=== PATIENT | male | born 1945 | race Caucasian/White ===

== ENCOUNTER 2017-11-28 12:37 | Observation (INO) | payer OTHER ==
[~2017-11-28] VITALS: Ht 180.3 cm; Wt 90.7 kg
[~2017-11-28 12:37] MED LIST: ASPIRIN EC81 M1 PO; ATORVASTATIN CA40 M1 PO; FLOVENT DISKU100 MCG INH; MULTI-DAY VITA1 EACH PO; TAMSULOSIN HCL0.4 M1 PO; TYLENOL WITH C1 EACH PO
[2017-11-28] MEDS ORDERED: MELOXICAM7.5 M1 PO (12:46)
--- NOTE | 2017-11-28 14:06 | ED GI/GU/ABDOMINAL COMPLAINT ---
See Addendum History of Present Illness General Chief Complaint: General Adult Stated Complaint: RECTAL BLEEDING ON AND OFF SINCE MONDAY Source: patient Exam Limitations: no limitations Vital Signs & Intake/Output Vital Signs & Intake/Output Vital Signs Date Time Temp Pulse Resp B/P B/P Pulse O2 O2 Flow FiO2 Mean Ox Delivery Rate 11/28 1457 142/71 11/28 1447 99 Room Air 11/28 1243 97.2 105 18 140/68 96 Room Air Allergies Coded Allergies: NO KNOWN ALLERGIES (11/07/12) Reconcile Medications Aspirin (Ecotrin*) 81 MG TABLET.DR 1 TAB PO DAILY HEART/BLOOD (Reported) Atorvastatin Calcium 40 MG TABLET 1 TAB PO DAILY CHOLESTEROL (Reported) Fluticasone Propionate (Flovent Diskus) 100 MCG BLST.W.DEV 1 PUF INH BID ASTHMA (Reported) Meloxicam 7.5 MG TABLET 1 TAB PO QOD ARTHRITIS (Reported) Multivitamin (Multi-Day Vitamins) 1 EACH TABLET 1 TAB PO DAILY SUPPLEMENT ( Reported) Tamsulosin HCl 0.4 MG CAP.ER.24H 1 CAP PO DAILY PROSTATE (Reported) Triage Note: PER PT HAD BLOOD IN STOOL MONDAY AFTER STRAINING WITH BM, NO OTHER PROBLEMS DID NOT OCCUR AGAIN UNTIL THIS AM PER GI DR ?RUPTURED DIVERTICULEM Triage Nurses Notes Reviewed? yes Onset: Abrupt Duration: day(s): (3), waxing and waning Timing: recent history Location: RECTAL Radiation: no radiation HPI: This is a 72-year-old male with history of asthma, high cholesterol, known diverticular disease who presents to the ER chief complaint of rectal bleeding that began on Monday morning. He states he was straining to have a bowel movement which was normal color but then after a lot of bright red blood in the toilet. No clots. Later on that afternoon he had a normal brown bowel movement without any associated blood. Yesterday all throughout the day he was fine had normal bowel movements without bleeding however yesterday evening he again had bright red blood after a BM. He had another 2 episodes during the night and his last episode of bleeding was this morning at 11:30. Patient Denies any abdominal pain cramping back pain, lightheadedness dizziness chest pain or shortness of breath. He had his last colonoscopy partially 5 years ago in [place] and was told that he sees. 10 years prior he had one polypectomy. No history of colon cancer. He is on a baby aspirin at home but denies any other anticoagulant use. He does not use any [id number] NSAIDs. He called his doctor who advised him to come to the ER today for evaluation. (Sophia Carrillo MD) Past History Travel History Traveled to [place] past 21 day No Medical History Any Pertinent Medical History? 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 No (Sophia Carrillo MD) Review of Systems Review of Systems Constitutional: Denies: chills, fever. EENTM: Reports: no symptoms. Respiratory: Denies: hemoptysis, short of breath, sputum production. Cardiovascular: Denies: chest pain, palpitations. GI: Reports: constipation, changes in stool. Denies: abdominal pain, bloody stool. Genitourinary: Denies: discharge, dysuria, frequency, hematuria. Musculoskeletal: Denies: back pain. Skin: Reports: no symptoms. Neurological/Psychological: Reports: no symptoms. Hematologic/Endocrine: Reports: bleeding. Denies: bruising, polyuria, polydipsia. Immunologic/Allergic: Denies: splenectomy. All Other Systems: Reviewed and Negative (Sophia Carrillo MD) Physical Exam Physical Exam General Appearance: well developed/nourished, alert, awake, mild distress Head: atraumatic, normal appearance Eyes: Bilateral: normal appearance, PERRL, EOMI. Ears, Nose, Throat, Mouth: hearing grossly normal, moist mucous membrane Neck: normal inspection, supple, full range of motion Respiratory: normal breath sounds, chest non-tender, no respiratory distress Cardiovascular: regular rate/rhythm, normal peripheral pulses Gastrointestinal: normal bowel sounds, soft, non-tender Rectal: DARK RED BLOOD ON MAIN Extremities: normal range of motion Neurologic/Psych: no motor/sensory deficits, awake, alert, oriented x 3, normal gait, normal mood/affect Skin: intact, normal color, warm/dry Core Measures ACS in differential dx? No Sepsis Present: No Sepsis Focused Exam Completed? No (Sophia Carrillo MD) Progress Differential Diagnosis: DIVERTICULOSIS, PUD, COLITIS, AVM, HEMORRHOIDS Plan of Care: Orders Procedure Date/time Status MISTAKE 11/28 1417 Active PARTIAL THROMBOPLASTIN TIME 11/28 1405 Complete PROTHROMBIN TIME 11/28 140 Complete LACTIC ACID 11/28 140 Complete COMPREHENSIVE METABOLIC PANEL 11/28 140 Complete CBC WITHOUT DIFFERENTIAL 11/28 140 Complete EKG 11/28 140 Active TYPE & SCREEN (NOT X-MATCH) 11/28 140 Complete Laboratory Tests 11/28/17 1432: Anion Gap 12, Estimated GFR > 60, BUN/Creatinine Ratio 31.1 H, Glucose 119 H, Lactic Acid 1.1, Calcium 9.5, Total Bilirubin 0.9, AST 21, ALT 21, Alkaline Phosphatase 63, Total Protein 6.7, Albumin 3.9, Globulin 2.8, Albumin/Globulin Ratio 1.4, PT 12.7 H, INR 1.16, APTT 29, CBC w Diff NO MAN DIFF REQ, RBC 4.13 L, MCV 84.6, MCH 29.0, MCHC 34.2, RDW 14.1, MPV 7.2 L, Gran % 77.5 H, Lymphocytes % 15.0 L, Monocytes % 5.3, Eosinophils % 1.7, Basophils % 0.5, Absolute Granulocytes 6.8 H, Absolute Lymphocytes 1.3, Absolute Monocytes 0.5, Absolute Eosinophils 0.1, Absolute Basophils 0 Initial ED EKG: RBBB Hand-Off Endorsed To: Chavo Patel DO Endorsed Time: 1500 Pending: consult (GI) (Sophia Carrillo MD) Departure Departure Disposition: STILL A PATIENT Condition: Stable Clinical Impression Primary Impression: GI bleed Referrals: Je Culp MD (PCP/Family) Departure Forms: Customer Survey General Discharge Information (Sophia Carrillo MD) Departure Comments 11/28/17 3 PM The patient was signed out to me by Dr. Carrillo. He is pending GI consultation. (Chavo Patel DO)
[2017-11-28 14:41] LABS: ABSOLUTE BASOPHIL COUNT 0 /CUMM (0.0-0.2); ABSOLUTE EOSINOPHIL COUNT 0.1 /CUMM (0.0-0.7); ABSOLUTE GRANULOCYTE CT 6.8 /CUMM (1.4-6.5); ABSOLUTE LYMPH COUNT 1.3 /CUMM (1.2-3.4); ABSOLUTE MONOCYTE COUNT 0.5 /CUMM (0.10-0.60); BASOPHIL % 0.5 % (0.0-2.0); EOSINOPHIL % 1.7 % (0-5); GRANULOCYTE % 77.5 % (42.2-75.2); MEAN CORPUSCULAR HGB CONC 34.2 G/DL (33.0-37.0); MEAN CORPUSCULAR VOLUME 84.6 FL (80.0-94.0); MEAN PLATELET VOLUME 7.2 FL (7.4-10.4); PLATELET COUNT 334 /CUMM (130-400); RBC DISTRIBUTION WIDTH 14.1 % (11.5-14.5); RED BLOOD CELL CT 4.13 /CUMM (4.70-6.10); WHITE BLOOD CELL COUNT 8.8 /CUMM (4.8-10.8)
[2017-11-28 14:51] LABS: PT 12.7 SEC (9.4-12.5); PTT 29 SEC (25-37)
--- NOTE | 2017-11-28 17:33 | Cons- Gastroenterology ---
General Information and HPI Consulting Request Date of Consult: 11/28/17 Requested By: Dr. Rand Reason for Consult: 1. Hematochezia 2. Acute blood loss anemia 3. Diverticulosis Source of Information: patient Exam Limitations: no limitations History of Present Illness: Mr. Ac is a very pleasant 72-year-old male with past medical history significant for diverticulosis. You asked had a colonoscopy around 5 years ago which was negative for colonic polyps. He has no significant past medical history with the exception of asthma for which she takes Advair. He was in his usual state of health until Monday evening when he had urgency for bowel movement. He felt a little constipated and went to the bathroom and when he turned flush the toilet noted that it was filled with blood. He had one other episode on Monday and went to sleep. However on Monday he had another episode in the morning and again in the afternoon was able to go to sleep however this morning when he awoke he again had another episode. He had no syncope, chest pain, shortness of breath. He describes the blood as being red. He had no straining. And had had no abdominal pain. He has never had an episode like this in the past. He generally has a normal bowel habit. He currently has no abdominal pain. He has no family history of breast ovarian uterine or colon cancer. Allergies/Medications Allergies: Coded Allergies: NO KNOWN ALLERGIES (11/07/12) Home Med List: Aspirin (Ecotrin*) 81 MG TABLET.DR 1 TAB PO DAILY HEART/BLOOD (Reported) Atorvastatin Calcium 40 MG TABLET 1 TAB PO DAILY CHOLESTEROL (Reported) Fluticasone Propionate (Flovent Diskus) 100 MCG BLST.W.DEV 1 PUF INH BID ASTHMA (Reported) Meloxicam 7.5 MG TABLET 1 TAB PO QOD ARTHRITIS (Reported) Multivitamin (Multi-Day Vitamins) 1 EACH TABLET 1 TAB PO DAILY SUPPLEMENT ( Reported) Tamsulosin HCl 0.4 MG CAP.ER.24H 1 CAP PO DAILY PROSTATE (Reported) Past History Travel History Traveled to [place] past 21 day No Medical History Neurological: NONE EENT: NONE Cardiovascular: CHOL Respiratory: asthma Gastrointestinal: DIVERITULOSIS Hepatic: NONE Renal: NONE Musculoskeletal: osteoarthritis Psychiatric: NONE Endocrine: NONE Blood Disorders: NONE Cancer(s): NONE 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 EENTM: Reports: no symptoms. Cardiovascular: Reports: no symptoms. Respiratory: Reports: see HPI. GI: Reports: see HPI. Genitourinary: Reports: no symptoms. Musculoskeletal: Reports: no symptoms. Skin: Reports: no symptoms. Neurological/Psychological: Reports: no symptoms. Hematologic/Endocrine: Reports: no symptoms. Exam & Diagnostic Data Vital Signs and I&O Vital Signs Date Time Temp Pulse Resp B/P B/P Pulse O2 O2 Flow FiO2 Mean Ox Delivery Rate 11/28 1457 142/71 11/28 1447 99 Room Air 11/28 1243 97.2 105 18 140/68 96 Room Air Intake & Output 11/28 1600 11/28 0400 11/27 1600 11/27 0400 11/26 1600 11/26 0400 Intake Total 0 Output Total Balance 0 Intake, Oral 0 Patient 200 lb Weight Weight Reported by Patient Measurement Method Physical Exam General Appearance: well developed/nourished, no apparent distress, alert, awake Head: atraumatic, normal appearance Eyes: Bilateral: normal appearance. Ears, Nose, Throat: hearing grossly normal Neck: normal inspection, supple, full range of motion Respiratory: normal breath sounds, chest non-tender, lungs clear Cardiovascular: regular rate/rhythm, normal S1 and S2 without rub murmur or gallop Gastrointestinal: normal bowel sounds, soft, non-tender, no organomegaly Rectal: Brown stool heme positive per ED note Neurologic/Psych: no motor/sensory deficits, awake, alert, oriented x 3, normal mood/affect Cranial Nerves: normal hearing, normal speech, cranial nerves II through XII grossly intact Skin: intact, normal color, warm/dry Results Pertinent Lab Results: Laboratory Tests 11/28 11/28 1705 1432 Chemistry Sodium (137 - 145 mmol/L) 141 Potassium (3.5 - 5.1 mmol/L) 4.3 Chloride (98 - 107 mmol/L) 103 Carbon Dioxide (22 - 30 mmol/L) 26 Anion Gap (5 - 16) 12 BUN (9 - 20 mg/dL) 28 H Creatinine (0.7 - 1.2 mg/dL) 0.9 Estimated GFR (>60 ml/min) > 60 BUN/Creatinine Ratio (7 - 25 %) 31.1 H Glucose (65 - 99 mg/dL) 119 H Lactic Acid (0.7 - 2.1 mmol/L) Cancelled 1.1 Calcium (8.4 - 10.2 mg/dL) 9.5 Total Bilirubin (0.2 - 1.3 mg/dL) 0.9 AST (17 - 59 U/L) 21 ALT (21 - 72 U/L) 21 Alkaline Phosphatase (< 127 U/L) 63 Total Protein (6.3 - 8.2 g/dL) 6.7 Albumin (3.5 - 5.0 g/dL) 3.9 Globulin (1.9 - 4.2 gm/dL) 2.8 Albumin/Globulin Ratio (1.1 - 2.2 %) 1.4 Coagulation PT (9.4 - 12.5 SEC) 12.7 H INR (0.90 - 1.17) 1.16 APTT (25 - 37 SEC) 29 Hematology CBC w Diff NO MAN DIFF REQ WBC (4.8 - 10.8 /CUMM) 8.8 RBC (4.70 - 6.10 /CUMM) 4.13 L Hgb (14.0 - 18.0 G/DL) 12.0 L Hct (42 - 52 %) 35.0 L MCV (80.0 - 94.0 FL) 84.6 MCH (27.0 - 31.0 PG) 29.0 MCHC (33.0 - 37.0 G/DL) 34.2 RDW (11.5 - 14.5 %) 14.1 Plt Count (130 - 400 /CUMM) 334 MPV (7.4 - 10.4 FL) 7.2 L Gran % (42.2 - 75.2 %) 77.5 H Lymphocytes % (20.5 - 51.1 %) 15.0 L Monocytes % (1.7 - 9.3 %) 5.3 Eosinophils % (0 - 5 %) 1.7 Basophils % (0.0 - 2.0 %) 0.5 Absolute Granulocytes (1.4 - 6.5 /CUMM) 6.8 H Absolute Lymphocytes (1.2 - 3.4 /CUMM) 1.3 Absolute Monocytes (0.10 - 0.60 /CUMM) 0.5 Absolute Eosinophils (0.0 - 0.7 /CUMM) 0.1 Absolute Basophils (0.0 - 0.2 /CUMM) 0 Assessment/Plan Assessment/Recommendations: ASSESSMENT: 1. Acute blood loss anemia 2. Hematochezia 3. Known history of diverticulosis Patient's blood loss is likely diverticular in origin. I discussed the risks and benefits of colonoscopy with him. He is due for colonoscopy this year anyway and is agreeable to having the procedure now. RECOMMENDATIONS: 1. Clear liquid, non-red, diet 2. Colonic preparation tonight. 2 L of GoLYTELY now and then 2 L at 5 AM 3. Colonoscopy tomorrow a.m. I have discussed the risks and benefits of this with him 4. All questions have been answered. 5. 2 large-bore IVs 6. Serial H&H every 6 hours 7. If recurrent lower GI bleeding that is clinically or hemodynamically significant call Kimmy Madison M.D. Consult Acknowledgment - Thank you for your consult request.
--- NOTE | 2017-11-28 18:10 | History & Physical ---
Shawn Kern 11/28/17 1809: General Information and HPI Source of Information: patient Exam Limitations: no limitations History of Present Illness: Mr. Linda is a 72-year-old male with past medical history significant for asthma , diverticulosis, HLD, OA acute post streptococcal glomerulonephritis who presents to the ED for dark red stools for 3 days. Patient reports he was in his usual state of health when on Monday morning after using the bathroom his toilet was filled with dark red blood and blood mixed with stools, subsequently Monday evening he had a another episode of dark red stools. He then reports early this morning he had 2 episodes of dark red stools. He also reports he had some constipation on Monday in which he had hard stools. He takes meloxicam every other day for OA that he has been taken since February. He reports initially he was taking it daily for 1 month but is now on QOD, his last dose was Monday. He had a colonoscopy in 2012 by ([facility]) that was negative. He denies history of hemorrhoids, SOB, lightheadedness, nausea, vomiting, hematemesis, hematuria. Allergies/Medications Allergies: Coded Allergies: NO KNOWN ALLERGIES (11/07/12) Home Med list Aspirin (Ecotrin*) 81 MG TABLET.DR 1 TAB PO DAILY HEART/BLOOD (Reported) Atorvastatin Calcium 40 MG TABLET 1 TAB PO DAILY CHOLESTEROL (Reported) Fluticasone Propionate (Flovent Diskus) 100 MCG BLST.W.DEV 1 PUF INH BID ASTHMA (Reported) Meloxicam 7.5 MG TABLET 1 TAB PO QOD ARTHRITIS (Reported) Multivitamin (Multi-Day Vitamins) 1 EACH TABLET 1 TAB PO DAILY SUPPLEMENT ( Reported) Tamsulosin HCl 0.4 MG CAP.ER.24H 1 CAP PO DAILY PROSTATE (Reported) Observation Initial Note - I have personally examined ASHER LINDA on 11/28/17 at 1929. 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 Exam & Diagnostic Data Last 24 Hrs of Vital Signs/I&O Vital Signs Date Time Temp Pulse Resp B/P B/P Pulse O2 O2 Flow FiO2 Mean Ox Delivery Rate 11/28 1457 142/71 11/28 1447 99 Room Air 11/28 1243 97.2 105 18 140/68 96 Room Air Intake & Output 11/28 1600 11/28 0800 11/28 0000 Intake Total 0 Output Total Balance 0 Intake, Oral 0 Patient 200 lb Weight Weight Reported by Patient Measurement Method Physical Exam General Appearance Alert, Oriented X3, Cooperative, No Acute Distress HEENT Atraumatic, PERRLA, EOMI, Mucous Membr. moist/pink Neck Supple, No JVD, No thryomegaly, +2 Carotid Pulse wo Bruit Cardiovascular Regular Rate, Normal S1, Normal S2, No Murmurs Lungs Clear to Auscultation, Normal Air Movement Abdomen Normal Bowel Sounds, Soft, No Tenderness Extremities Normal Pulses Last 24 Hrs of Labs/Romel: Laboratory Tests 11/28/17 1705: Lactic Acid Cancelled 11/28/17 1432: Anion Gap 12, Estimated GFR > 60, BUN/Creatinine Ratio 31.1 H, Glucose 119 H, Lactic Acid 1.1, Calcium 9.5, Total Bilirubin 0.9, AST 21, ALT 21, Alkaline Phosphatase 63, Total Protein 6.7, Albumin 3.9, Globulin 2.8, Albumin/Globulin Ratio 1.4, PT 12.7 H, INR 1.16, APTT 29, CBC w Diff NO MAN DIFF REQ, RBC 4.13 L, MCV 84.6, MCH 29.0, MCHC 34.2, RDW 14.1, MPV 7.2 L, Gran % 77.5 H, Lymphocytes % 15.0 L, Monocytes % 5.3, Eosinophils % 1.7, Basophils % 0.5, Absolute Granulocytes 6.8 H, Absolute Lymphocytes 1.3, Absolute Monocytes 0.5, Absolute Eosinophils 0.1, Absolute Basophils 0 Diagnostic Data EKG Results NS , RBBB V1,V2 HR 94 QTc 476 Assessment/Plan Assessment: Mr. Linda is a 72-year-old male with past medical history significant for asthma , diverticulosis, HLD, OA acute post streptococcal glomerulonephritis who presents to the ED for LGIB for 3 days. LGIB most likely 2/2 diverticulosis given his history but malignancy most be r/o though colonoscopy in 2012 was negative for malignancy * Placed on 23 hour observation * 2 large bore IVs * CBC every 6 for H&H, goal hgb 7, transfuse if necessary * IV Protonix daily * GI consult * Nothing by mouth for colonoscopy in the morning * GoLYTELY for bowel prep * Resume home meds except meloxicam and ASA * Avoid NSAIDS Diet: Clear liquid DVT prophylaxis: ALPS As Ranked By This Provider Problem List: 1. GI bleed Core Measures/Misc (05/28) Acute Coronary Syndrome ACS Diagnosis: No Congestive Heart Failure Congestive Heart Failure Diagnosis No Cerebrovascular Accident CVA/TIA Diagnosis: No VTE (View Protocol) VTE Risk Factors Age>40 No Mechanical VTE Prophylaxis d/t N/A MechProphylax Ordered No VTE Pharm Prophylaxis d/t Medical Contraindication Sepsis (View protocol) Sepsis Present: No Trae Coleman MD 11/28/17 1854: Resident Review Statement Resident Statement: examined this patient, discussed with customer operations intern, agreed with customer operations intern Other Findings: Patient is a 72-year-old male with significant past medical history of asthma, osteoarthritis diagnosed in 2016 was on meloxicam presented with chief complaints of bleeding per rectum. According to the patient he was constipated since couple of days and on Monday he was straining which is followed by blood in the toilet. He denies any bright red blood color but define as it was black in color and mixed with the stool. Later on Monday night he had 2 episodes and on Monday morning he again had black stool so he came here for further evaluation and management. He denies chest pain, palpitation, headache, dizziness, blacking in front of eyes, abdominal pain, hemorrhoids. Past medical history -asthma, osteoarthritis,BPH, history of hydronephrosis of the left ureter, diverticulosis Allergies -NKDA Personal history -he lives with a family denies for any smoking, alcohol, illicit drug use. He quit his smoking around 30-35 years ago. Family history - his father has diverticulosis and aortic aneurysm secondary to smoking ED course - Vital signs -temperature 97.2, pulse 105, respiratory 18, blood pressure 140/68, SPO2 96% on room air. On physical exam conscious, cooperative, alert 3, oral mucosa moist, no palor, chest bilateral clear, heart S1-S2 normal, all peripheral pulses palpable. Blood workup showed - hemoglobin 12.5, hematocrit 35.0, platelet count 334, granulocytes 77.5, sodium 141, potassium 4.3, chloride 103, anion gap 12, BUN 28 , creatinine 0.9, glucose 119, calcium 9.5, AST 21, ALT 21, alkaline phosphatase 63, troponin I -pending, albumin 3.9,PT/INR 12.7/1.16, APTT 29. Assessment and plan patient is a 72-year-old male with past medical history of asthma and osteoarthritis was using meloxicam off and on presented with a GI bleed. The blood was black in color and mixed with the stool. It can be a lower GI bleed but that may be chronic or upper GI bleed secondary to ulcer. He is hemodynamically stable so it is more towards lower GI bleed but upper GI bleed cannot be ruled out. We will follow the GI recommendation and keep the patient n.p.o. after midnight for colonoscopy tomorrow at 1:00. If by chance patient got unstable in between will call GI immediately. GI bleed possibly lower but upper GI cannot be ruled out - * Clear liquid diet for now * N.p.o. after midnight * Watch for bleeding * CBC every 6 hours * Prepare for colonoscopy -2 L of GoLYTELY now and 5 PM. * If patient hemodynamically unstable call GI immediately. * Avoid NSAIDs Chronic medical condition -asthma, BPH, osteoarthritis * Will continue on home medication * We will avoid NSAIDs and if needed then oxycodone/Tylenol. CODE STATUS -full code DVT prophylaxis -ALPS Diet -clear liquid for now and n.p.o. after midnight for colonoscopy tomorrow. - Jorge L Warner MD 11/28/17 1517: Attending MD Review Statement Attending Statement Attending MD Statement: examined this patient, discuss w/resident/PA/GUSSET STITCHER, agreed w/resident/PA/GUSSET STITCHER, reviewed EMR data (avail) Attending Assessment/Plan: 72M PMH asthma, diverticulosis, HLD presenting with bloody bowel movements for 3 days. 3 days ago felt urge to defecate, strained a bit, and had a dark red bowel movement, which has continued for 3 days. He has no pain with defecation. He denies lightheadedness, chest pain, palpitations, SOB, fatigue, weakness. Vitals are stable and Hgb is only slightly decreased from prior. His exam is normal. Of note, he takes Meloxicam every other day for arthritis. He does not smoke and has no family history of colon cancer. 1. Hematochezia Plan - Observation in general medicine - Will go for colonoscopy in the morning - Bowel prep tonight - Monitor CBC - Follow GI recommendations - NPO after midnight - Continue home medications - DVT PPx
[2017-11-28 19:36] VITALS: BP 128/70
[2017-11-28 22:20] VITALS: BP 124/78
[2017-11-28 23:51] LABS: ABSOLUTE BASOPHIL COUNT 0 /CUMM (0.0-0.2); ABSOLUTE EOSINOPHIL COUNT 0.4 /CUMM (0.0-0.7); ABSOLUTE GRANULOCYTE CT 6.7 /CUMM (1.4-6.5); ABSOLUTE MONOCYTE COUNT 0.6 /CUMM (0.10-0.60); BASOPHIL % 0.5 % (0.0-2.0); EOSINOPHIL % 3.9 % (0-5); GRANULOCYTE % 68.4 % (42.2-75.2); HEMATOCRIT 35.9 % (42-52); MEAN CORPUSCULAR HGB 28.9 PG (27.0-31.0); MEAN CORPUSCULAR HGB CONC 33.7 G/DL (33.0-37.0); MEAN CORPUSCULAR VOLUME 85.9 FL (80.0-94.0); MEAN PLATELET VOLUME 7.2 FL (7.4-10.4); PLATELET COUNT 331 /CUMM (130-400); RBC DISTRIBUTION WIDTH 14.4 % (11.5-14.5); RED BLOOD CELL CT 4.18 /CUMM (4.70-6.10); WHITE BLOOD CELL COUNT 9.8 /CUMM (4.8-10.8)
[2017-11-29 06:12] VITALS: BP 128/74
[2017-11-29 10:32] LABS: ABSOLUTE BASOPHIL COUNT 0 /CUMM (0.0-0.2); ABSOLUTE EOSINOPHIL COUNT 0.2 /CUMM (0.0-0.7); ABSOLUTE GRANULOCYTE CT 5.7 /CUMM (1.4-6.5); ABSOLUTE LYMPH COUNT 1.5 /CUMM (1.2-3.4); ABSOLUTE MONOCYTE COUNT 0.4 /CUMM (0.10-0.60); BASOPHIL % 0.6 % (0.0-2.0); EOSINOPHIL % 2.8 % (0-5); GRANULOCYTE % 72.5 % (42.2-75.2); HEMATOCRIT 33.5 % (42-52); MEAN CORPUSCULAR HGB 29.2 PG (27.0-31.0); MEAN CORPUSCULAR HGB CONC 33.9 G/DL (33.0-37.0); MEAN CORPUSCULAR VOLUME 86.3 FL (80.0-94.0); MEAN PLATELET VOLUME 7.9 FL (7.4-10.4); PLATELET COUNT 306 /CUMM (130-400); RBC DISTRIBUTION WIDTH 14.3 % (11.5-14.5); RED BLOOD CELL CT 3.88 /CUMM (4.70-6.10); WHITE BLOOD CELL COUNT 7.8 /CUMM (4.8-10.8)
--- NOTE | 2017-11-29 11:23 | PN- Housestaff ---
Shawn Kern 11/29/17 1123: Subjective Follow-up For: LGIB Subjective: No complaints or acute events overnight Review of Systems Constitutional: Reports: see HPI. Objective Last 24 Hrs of Vital Signs/I&O Vital Signs Date Time Temp Pulse Resp B/P B/P Pulse O2 O2 Flow FiO2 Mean Ox Delivery Rate 11/29 0918 97.5 79 20 128/74 11/29 0612 97.5 79 20 128/74 94 Room Air 11/28 2220 97.9 87 20 124/78 96 Room Air 11/28 1936 98.5 91 18 128/70 95 Room Air 11/28 1854 98.2 89 18 140/82 97 11/28 1457 142/71 11/28 1447 99 Room Air 11/28 1243 97.2 105 18 140/68 96 Room Air Intake & Output 11/29 1600 11/29 0800 11/29 0000 Intake Total 800 Output Total 250 Balance 550 Intake, Oral 800 Number 3 Bowel Movements Output, Urine 250 Patient 200 lb Weight Physical Exam General Appearance: Alert, Oriented X3, Cooperative, No Acute Distress Cardiovascular: Regular Rate, Normal S1, Normal S2, No Murmurs Lungs: Clear to Auscultation, Normal Air Movement Abdomen: Normal Bowel Sounds, Soft, No Tenderness Current Medications: Current Medications Sig/Yvan Start time Last Medication Dose Route Stop Time Status Admin Albuterol Sulfate 2 PUF Q4 HRS NEEDED PRN 11/28 1930 AC INH Atorvastatin Calcium 40 MG 1700 11/29 1700 AC PO Chlorhexidine 1 GM .STK-MED ONE 11/29 1411 DC Gluconate TOP 11/29 1412 Pantoprazole Sodium 40 MG DAILY 11/28 1934 AC 11/29 IV 0918 Patient Medication 1 ED ONE ONE 11/29 1030 DC Teaching ED 11/29 1031 Polyethylene Glycol 1 GAL SEE ADMIN CRITERIA 11/28 1830 AC PO Tamsulosin HCl 0.4 MG DAILY 11/29 1000 AC 11/29 PO 0918 Last 24 Hrs of Lab/Romel Results Last 24 Hrs of Labs/Mics: Laboratory Tests 11/29/17 0925: CBC w Diff NO MAN DIFF REQ, RBC 3.88 L, MCV 86.3, MCH 29.2, MCHC 33.9, RDW 14.3 , MPV 7.9, Gran % 72.5, Lymphocytes % 19.2 L, Monocytes % 4.9, Eosinophils % 2.8, Basophils % 0.6, Absolute Granulocytes 5.7, Absolute Lymphocytes 1.5, Absolute Monocytes 0.4, Absolute Eosinophils 0.2, Absolute Basophils 0 11/28/17 2335: CBC w Diff NO MAN DIFF REQ, RBC 4.18 L, MCV 85.9, MCH 28.9, MCHC 33.7, RDW 14.4 , MPV 7.2 L, Gran % 68.4, Lymphocytes % 20.7, Monocytes % 6.5, Eosinophils % 3.9, Basophils % 0.5, Absolute Granulocytes 6.7 H, Absolute Lymphocytes 2.0, Absolute Monocytes 0.6, Absolute Eosinophils 0.4, Absolute Basophils 0 11/28/17 1705: Lactic Acid Cancelled Assessment/Plan Assessment: Mr. Linda is a 72-year-old male with past medical history significant for asthma , diverticulosis, HLD, OA, acute post streptococcal glomerulonephritis who presents to the ED for LGIB for 3 days. LGIB most likely 2/2 diverticulosis given his history but malignancy most be r/o though colonoscopy in 2012 was negative for malignancy * Extend 23 hour observation * CBC daily for H&H, goal hgb 7, transfuse if necessary * Continue PPI * GI recommendations appreciated * EGD showed pandiverticulosis * Continue home meds except meloxicam and ASA * Avoid NSAIDS Diet: Regular diet DVT prophylaxis: ALPS Patient will be discharged tomorrow if H&H stable Problem List: 1. GI bleed Pain Ratin Pain Location: NA Pain Goal: Remain pain free Pain Plan: NA Tomorrow's Labs & Rationales: CBC for anemia Sinai Oropeza MD 11/29/17 1429: Attending MD Review Statement Attending Statement Attending MD Statement: examined this patient, discuss w/resident/PA/SALES AND SERVICE CONSULTANT, agreed w/resident/PA/SALES AND SERVICE CONSULTANT, reviewed EMR data (avail), discussed with nursing, discussed with case mgmt, reviewed images Attending Assessment/Plan: Patient is in observation status. He is here with a lower GI bleed. He had his colonoscopy today, appreciate GIs recommendations and he was found to have pandiverticulosis. They are recommending to observe him overnight and will get another CBC in a.m. We have spoken to the pillowcase turner about extending his observation status with the idea of discharging him in a.m. if he tolerates a regular diet and has no more rectal bleeding.
--- NOTE | 2017-11-29 13:55 | Proc Note Colonoscopy ---
Colonoscopy Procedure Medical History: unchanged Mental Status: alert/oriented Heart/Lung Eval Prior to Sedation: within normal limits Candidate for Sedation? Yes Date of Last Colonoscopy: 2007 Procedure Date: 11/29/17 Procedure Type: colonoscopy w/biopsy Flooring Machine Feeder: MD Madison Deborah E. ASA Classification: II Indications: 1. Lower GI bleed 2. Acute blood loss anemia 3. Personal history diverticulosis Instrument (Colonoscope): single channel Meds Received: MAC Patient's Tolerance: good Complications: none Extent Reached: terminal ileum Prep: [id number] Procedure: The patient took a split dose colonic preparation after which they were NPO for an appropriate time prior to procedure. Note: Informed consent was obtained prior to procedure. Risks and benefits of procedure were discussed with patient. Potential complications discussed included perforation, bleeding, abdominal pain, and adverse reaction to medications. It was explained that iany or all of these complications could result in the need for extended hospitalization, emergency surgery, transfusion of packed red blood cells (with the risk of HIV or hepatitis virus), intubation with mechanical ventilation, and possible need for antibiotics. It was further explained that an existing tumor polyp or mucosal abnormality might not be identified at the time of the procedure thus resulting in a missed opportunity for early diagnosis and treatment of a gastrointestinal malignancy or disease with possible interval development of a gastrointestinal cancer or other disease with possible worsening of clinical condition in the interval between endoscopies. It was also discussed that complications are not limited to those listed above. Possible alternatives to endoscopic treatment or evaluation were discussed. All questions were answered. Continuous EKG and blood pressure monitors were attached. Supplemental oxygen was provided with O2 Sat monitoring. Patient was placed in the left lateral decubitus position. A surgical timeout was performed. All persons in the room were identified. All concerns were expressed and answered. Sedation was administered by anesthesia and titrated to comfort prior to starting procdedure. A digital rectal exam was performed. There was normal tone and no masses. The Olympus CHF 180AL video colonoscope was advanced under direct vision to the level of the cecum. The cecum was easily identified by internal landmarks. The cecum, ileocecal valve and appendiceal orifice were easily identified and photo documented. The ileocecal valve was intubated. The colonoscope was advanced for a distance of 10 cm within the terminal ileum. There was a normal mucosal and vascular pattern throughout the terminal ileum. With colonoscope in the forward-viewing position it was slowly withdrawn and all areas were reinspected. The cecum, ascending colon, hepatic flexure, transverse colon, splenic flexure, descending colon, sigmoid colon, rectosigmoid junction, rectum and retroflexed view of the rectum all fully examined. The ileocecal valve was somewhat prominent and had a lipomatous appearance. Multiple biopsies were obtained from the ileocecal valve given abnormal appearance. Retroflexed view of the rectum revealed a normal mucosal and vascular pattern. There was a normal mucosal and vascular pattern throughout the colon. There was severe diverticulosis throughout the entire colon. It was especially marked in the sigmoid colon extending to the mid descending colon. There were multiple cascading diverticuli of all sizes with associated mucosal hypertrophy. The rectosigmoid junction and distal sigmoid colon were somewhat tortuous to bypass however with care this was bypassed easily. Air was suctioned as the scope was withdrawn from the colon. Patient tolerated the procedure well. Cecal withdrawal time: 11 min Colonic preparation: Right Colon: 2.75; Transverse Colon: 3.0; Left Colon: 2.75. [place] Prep Scale Total: 8.5. Difficulty of Colonoscopy: Not difficult EBL: Minimal Specimens Removed: Prominent, lipomatous, ileocecal valve Findings: 1. Pandiverticulosis, most severe in the sigmoid and descending colon. 2. Prominent ileocecal valve, likely of little clinical significance Impression: 1. Pandiverticulosis, most severe in the sigmoid and descending colon. 2. Prominent ileocecal valve, likely of little clinical significance Recommendations: 1. Patient will need repeat screening colonoscopy in 10 years 2. Avoid or decrease red meat. Either diet that is high in fruits and vegetables and fiber. Avoid deli or processed meats as these contain nitrites which are associated with a higher risk of colon cancer. You may take aspirin daily after discussing it with your primary care physician as this has been shown to decrease the risk of formation of colon polyps and of colon cancer. 3. If you develop any worrisome symptoms before your next colonoscopy contact yourr air bag stripper for evaluation. Such symptoms would include persistent abdominal pain, weight loss, persistent bloating, change in bowel habits, blood in your stool, or any significant change in your clinical condition. 4.The results of the procedure have been discussed with the patient. His bleeding was likely diverticular in origin. 5. Advance diet to regular diet 6. If there is no further bleeding, patient can be discharged to home in a.m. Followup Colonscopy Screen In: in 10 years CC: Robbi MERCADO,Je
--- NOTE | 2017-11-29 14:25 | Patient Discharge Instructions ---
Discharge Instructions General Discharge Information You were seen/treated for: Lower GI bleeding due to Diverticulosis You had these procedures: Endoscopy Special Instructions: Avoid or decrease red meat. Either diet that is high in fruits and vegetables and fiber. Avoid deli or processed meats as these contain nitrites which are associated with a higher risk of colon cancer. You may take aspirin daily after discussing it with your primary care physician as this has been shown to decrease the risk of formation of colon polyps and of colon cancer. If you develop any worrisome symptoms before your next colonoscopy contact yourr tumbler machine operator helper for evaluation. Such symptoms would include persistent abdominal pain, weight loss, persistent bloating, change in bowel habits, blood in your stool, or any significant change in your clinical condition Activity Activity Self Limited: Yes Acute Coronary Syndrome Inclusion Criteria At DC or during hospital stay patient has or had the following: ACS DIAGNOSIS No Discharge Core Measures Meds if any: Prescribed or Continued at Discharge Meds if any: NOT Prescribed or Continued at Discharge Congestive Heart Failure Inclusion Criteria At DC or during hospital stay patient has or had the following: CHF DIAGNOSIS No Discharge Core Measures Meds if any: Prescribed or Continued at Discharge Meds if any: NOT Prescribed or Continued at Discharge Cerebrovascular accident Inclusion Criteria At DC or during hospital stay patient has or had the following: CVA/TIA Diagnosis No Discharge Core Measures Meds if any: Prescribed or Continued at Discharge Meds if any: NOT Prescribed or Continued at Discharge Venous thromboembolism Inclusion Criteria VTE Diagnosis No VTE Type NONE VTE Confirmed by (Test) NONE Discharge Core Measures - Per Current guidelines, there needs to be overlap - treatment for the first 5 days of Warfarin therapy. - If discharged on Warfarin prior to 5 days of - overlap therapy, the patient will need to be - assessed for post discharge needs including - *Post discharge parental anticoagulation - *Warfarin and/or parental anticoagulation education - *Follow up date to check INR post discharge At least 5 days overlap therapy as Inpatient No Meds if any: Prescribed or Continued at Discharge Note: Overlap Therapy is Warfarin and Anticoagulant Meds if any: NOT Prescribed or Continued at Discharge
[2017-11-29 14:48] VITALS: BP 148/86
[2017-11-29 19:43] VITALS: BP 116/70
[2017-11-29 20:40] LABS: ABSOLUTE BASOPHIL COUNT 0.1 /CUMM (0.0-0.2); ABSOLUTE EOSINOPHIL COUNT 0.2 /CUMM (0.0-0.7); ABSOLUTE GRANULOCYTE CT 5.2 /CUMM (1.4-6.5); ABSOLUTE LYMPH COUNT 1.5 /CUMM (1.2-3.4); ABSOLUTE MONOCYTE COUNT 0.5 /CUMM (0.10-0.60); BASOPHIL % 0.7 % (0.0-2.0); EOSINOPHIL % 3.1 % (0-5); GRANULOCYTE % 70.3 % (42.2-75.2); HEMATOCRIT 35.7 % (42-52); MEAN CORPUSCULAR HGB CONC 33.5 G/DL (33.0-37.0); MEAN CORPUSCULAR VOLUME 86.5 FL (80.0-94.0); MEAN PLATELET VOLUME 7.9 FL (7.4-10.4); PLATELET COUNT 329 /CUMM (130-400); RBC DISTRIBUTION WIDTH 14.3 % (11.5-14.5); RED BLOOD CELL CT 4.13 /CUMM (4.70-6.10); WHITE BLOOD CELL COUNT 7.4 /CUMM (4.8-10.8)
[2017-11-29 21:56] VITALS: BP 114/70
[2017-11-30 06:52] VITALS: BP 118/72
--- NOTE | 2017-11-30 08:03 | PN- Housestaff ---
See Addendum Subjective Follow-up For: Diverticulosis with diverticular bleeding Subjective: No complaints or events overnight Review of Systems Constitutional: Reports: see HPI. Objective Last 24 Hrs of Vital Signs/I&O Vital Signs Date Time Temp Pulse Resp B/P B/P Pulse O2 O2 Flow FiO2 Mean Ox Delivery Rate 11/30 0652 98.5 85 20 118/72 93 Room Air 11/29 2156 98.4 85 20 114/70 95 11/29 1448 97.4 87 20 148/86 96 Room Air Intake & Output 11/30 1600 11/30 0800 11/30 0000 Intake Total 100 100 Output Total Balance 100 100 Intake, Oral 100 100 Physical Exam General Appearance: Alert, Oriented X3, Cooperative, No Acute Distress Cardiovascular: Regular Rate, Normal S1, Normal S2, No Murmurs Lungs: Clear to Auscultation, Normal Air Movement Current Medications: Current Medications Sig/Yvan Start time Last Medication Dose Route Stop Time Status Admin Albuterol Sulfate 2 PUF Q4 HRS NEEDED PRN 11/28 1930 AC INH Atorvastatin Calcium 40 MG 1700 11/29 1700 AC 11/29 PO 1704 Chlorhexidine 1 GM .STK-MED ONE 11/29 1411 DC Gluconate TOP 11/29 1412 Pantoprazole Sodium 40 MG DAILY 11/28 1934 AC 11/30 IV 0905 Polyethylene Glycol 1 GAL SEE ADMIN CRITERIA 11/28 1830 AC PO Sodium Chloride 2 SPRAY Q4P PRN 11/30 0100 AC 11/30 KWABENA 0549 Tamsulosin HCl 0.4 MG DAILY 11/29 1000 AC 11/30 PO 0905 Last 24 Hrs of Lab/Romel Results Last 24 Hrs of Labs/Mics: Laboratory Tests 11/30/17 0755: CBC w Diff NO MAN DIFF REQ, RBC 3.88 L, MCV 85.9, MCH 28.8, MCHC 33.6, RDW 13.8 , MPV 7.7, Gran % 74.9, Lymphocytes % 16.4 L, Monocytes % 5.3, Eosinophils % 2.9, Basophils % 0.5, Absolute Granulocytes 6.8 H, Absolute Lymphocytes 1.5, Absolute Monocytes 0.5, Absolute Eosinophils 0.3, Absolute Basophils 0 11/29/171999: CBC w Diff NO MAN DIFF REQ, RBC 4.13 L, MCV 86.5, MCH 29.0, MCHC 33.5, RDW 14.3 , MPV 7.9, Gran % 70.3, Lymphocytes % 19.7 L, Monocytes % 6.2, Eosinophils % 3.1, Basophils % 0.7, Absolute Granulocytes 5.2, Absolute Lymphocytes 1.5, Absolute Monocytes 0.5, Absolute Eosinophils 0.2, Absolute Basophils 0.1 Assessment/Plan Assessment: Mr. Linda is a 72-year-old male with past medical history significant for asthma , diverticulosis, HLD, OA, acute post streptococcal glomerulonephritis who presents to the ED for LGIB for 3 days. LGIB most likely 2/2 diverticulosis given his history but malignancy most be r/o though colonoscopy in 2012 was negative for malignancy * CBC daily for H&H, goal hgb 7, transfuse if necessary * Continue PPI * GI recommendations appreciated * EGD showed pandiverticulosis * Continue home meds except meloxicam and ASA * Avoid NSAIDS * Patient cleared by GI and H&H stable for discharge Diet: Regular diet DVT prophylaxis: ALPS Problem List: 1. GI bleed Pain Ratin Pain Location: NA Pain Goal: Remain pain free Pain Plan: NA Tomorrow's Labs & Rationales: none
[2017-11-30 08:33] LABS: HEMATOCRIT 33.3 % (42-52); MEAN CORPUSCULAR HGB 28.8 PG (27.0-31.0); MEAN CORPUSCULAR HGB CONC 33.6 G/DL (33.0-37.0); MEAN CORPUSCULAR VOLUME 85.9 FL (80.0-94.0); MEAN PLATELET VOLUME 7.7 FL (7.4-10.4); PLATELET COUNT 308 /CUMM (130-400); RBC DISTRIBUTION WIDTH 13.8 % (11.5-14.5); RED BLOOD CELL CT 3.88 /CUMM (4.70-6.10); WHITE BLOOD CELL COUNT 9.1 /CUMM (4.8-10.8)
[2017-11-30 08:38] LABS: ABSOLUTE BASOPHIL COUNT 0 /CUMM (0.0-0.2); ABSOLUTE EOSINOPHIL COUNT 0.3 /CUMM (0.0-0.7); ABSOLUTE GRANULOCYTE CT 6.8 /CUMM (1.4-6.5); ABSOLUTE LYMPH COUNT 1.5 /CUMM (1.2-3.4); ABSOLUTE MONOCYTE COUNT 0.5 /CUMM (0.10-0.60); BASOPHIL % 0.5 % (0.0-2.0); EOSINOPHIL % 2.9 % (0-5); GRANULOCYTE % 74.9 % (42.2-75.2)
--- NOTE | 2017-11-30 10:13 | PN- Gastroenterology ---
Assessment/Plan GI Assessment/Recommendations: ASSESSMENT: Diverticular Bleed -- None Further. Mild decrease in H/H. Likely dilutional. No gross luminal GI blood loss. Patient tolerating diet. RECOMMENDATIONS: 1. Discharge to home today 2. Discussed with patient that he should increase fiber in diet. 3. Discussed that repeat colonoscopy should be done in 10 years 4. We also discussed that patient could have recurrent diverticular bleeding. if Mr. Linda has recurrent hematochezia he will return to the ED immediately. All ?s answered. Subjective Subjective: Patient doing well. Tolerating diet. No nausea, vomiting or abdominal pain. No melena or BRBPR. No bowel movement. Eager to go home. Objective Vital Signs and I&Os Vital Signs Date Time Temp Pulse Resp B/P B/P Pulse O2 O2 Flow FiO2 Mean Ox Delivery Rate 11/30 0652 98.5 85 20 118/72 93 Room Air 11/29 2156 98.4 85 20 114/70 95 11/29 1448 97.4 87 20 148/86 96 Room Air Intake & Output 11/30 1600 11/30 0400 11/29 1600 11/29 0400 11/28 1600 11/28 0400 Intake Total 100 100 50 800 0 Output Total 400 250 Balance 100 100 -350 550 0 Intake, Oral 100 100 50 800 0 Number 4 Bowel Movements Output, Urine 400 250 Patient 200 lb 200 lb Weight Weight Reported by Patient Measurement Method Physical Exam General Appearance: well developed/nourished, no apparent distress, alert, awake , comfortable Respiratory: normal breath sounds, chest non-tender, no respiratory distress, lungs clear Cardiovascular: regular rate/rhythm, Normal S1 and S2 without rub, murmur or gallop. Abdomen: normal bowel sounds, soft, non-tender, no organomegaly Extremities: normal inspection, no edema Neurologic/Psychiatric: awake, alert, oriented x 3 Skin: intact, normal color, warm/dry Current Medications: Current Medications Sig/Yvan Start time Last Medication Dose Route Stop Time Status Admin Albuterol Sulfate 2 PUF Q4 HRS NEEDED PRN 11/28 1929 AC INH Atorvastatin Calcium 40 MG 1700 11/29 170 AC 11/29 PO 1704 Chlorhexidine 1 GM .STK-MED ONE 11/29 1411 DC Gluconate TOP 11/29 1412 Pantoprazole Sodium 40 MG DAILY 11/28 1933 AC 11/30 IV 0905 Patient Medication 1 ED ONE ONE 11/29 1030 [facility] ED 11/29 1031 Polyethylene Glycol 1 GAL SEE ADMIN CRITERIA 11/28 1830 AC PO Sodium Chloride 2 SPRAY Q4P PRN 11/30 0100 AC 11/30 KWABENA 0549 Tamsulosin HCl 0.4 MG DAILY 11/29 1000 AC 11/30 PO 0905 Results Pertinent Lab Results: Laboratory Tests 11/30 11/29 0755 2000 Hematology CBC w Diff NO MAN DIFF REQ NO MAN DIFF REQ WBC (4.8 - 10.8 /CUMM) 9.1 7.4 RBC (4.70 - 6.10 /CUMM) 3.88 L 4.13 L Hgb (14.0 - 18.0 G/DL) 11.2 L 12.0 L Hct (42 - 52 %) 33.3 L 35.7 L MCV (80.0 - 94.0 FL) 85.9 86.5 MCH (27.0 - 31.0 PG) 28.8 29.0 MCHC (33.0 - 37.0 G/DL) 33.6 33.5 RDW (11.5 - 14.5 %) 13.8 14.3 Plt Count (130 - 400 /CUMM) 308 329 MPV (7.4 - 10.4 FL) 7.7 7.9 Gran % (42.2 - 75.2 %) 74.9 70.3 Lymphocytes % (20.5 - 51.1 %) 16.4 L 19.7 L Monocytes % (1.7 - 9.3 %) 5.3 6.2 Eosinophils % (0 - 5 %) 2.9 3.1 Basophils % (0.0 - 2.0 %) 0.5 0.7 Absolute Granulocytes (1.4 - 6.5 /CUMM) 6.8 H 5.2 Absolute Lymphocytes (1.2 - 3.4 /CUMM) 1.5 1.5 Absolute Monocytes (0.10 - 0.60 /CUMM) 0.5 0.5 Absolute Eosinophils (0.0 - 0.7 /CUMM) 0.3 0.2 Absolute Basophils (0.0 - 0.2 /CUMM) 0 0.1 11/29 11/28 8630 3815 Hematology CBC w Diff NO MAN DIFF REQ NO MAN DIFF REQ WBC (4.8 - 10.8 /CUMM) 7.8 9.8 RBC (4.70 - 6.10 /CUMM) 3.88 L 4.18 L Hgb (14.0 - 18.0 G/DL) 11.3 L 12.1 L Hct (42 - 52 %) 33.5 L 35.9 L MCV (80.0 - 94.0 FL) 86.3 85.9 MCH (27.0 - 31.0 PG) 29.2 28.9 MCHC (33.0 - 37.0 G/DL) 33.9 33.7 RDW (11.5 - 14.5 %) 14.3 14.4 Plt Count (130 - 400 /CUMM) 306 331 MPV (7.4 - 10.4 FL) 7.9 7.2 L Gran % (42.2 - 75.2 %) 72.5 68.4 Lymphocytes % (20.5 - 51.1 %) 19.2 L 20.7 Monocytes % (1.7 - 9.3 %) 4.9 6.5 Eosinophils % (0 - 5 %) 2.8 3.9 Basophils % (0.0 - 2.0 %) 0.6 0.5 Absolute Granulocytes (1.4 - 6.5 /CUMM) 5.7 6.7 H Absolute Lymphocytes (1.2 - 3.4 /CUMM) 1.5 2.0 Absolute Monocytes (0.10 - 0.60 /CUMM) 0.4 0.6 Absolute Eosinophils (0.0 - 0.7 /CUMM) 0.2 0.4 Absolute Basophils (0.0 - 0.2 /CUMM) 0 0 /20 11/28 1705 1432 Chemistry Sodium (137 - 145 mmol/L) 141 Potassium (3.5 - 5.1 mmol/L) 4.3 Chloride (98 - 107 mmol/L) 103 Carbon Dioxide (22 - 30 mmol/L) 26 Anion Gap (5 - 16) 12 BUN (9 - 20 mg/dL) 28 H Creatinine (0.7 - 1.2 mg/dL) 0.9 Estimated GFR (>60 ml/min) > 60 BUN/Creatinine Ratio (7 - 25 %) 31.1 H Glucose (65 - 99 mg/dL) 119 H Lactic Acid (0.7 - 2.1 mmol/L) Cancelled 1.1 Calcium (8.4 - 10.2 mg/dL) 9.5 Total Bilirubin (0.2 - 1.3 mg/dL) 0.9 AST (17 - 59 U/L) 21 ALT (21 - 72 U/L) 21 Alkaline Phosphatase (< 127 U/L) 63 Troponin I (<0.11 ng/ml) < 0.01 Total Protein (6.3 - 8.2 g/dL) 6.7 Albumin (3.5 - 5.0 g/dL) 3.9 Globulin (1.9 - 4.2 gm/dL) 2.8 Albumin/Globulin Ratio (1.1 - 2.2 %) 1.4 Coagulation PT (9.4 - 12.5 SEC) 12.7 H INR (0.90 - 1.17) 1.16 APTT (25 - 37 SEC) 29 Hematology CBC w Diff NO MAN DIFF REQ WBC (4.8 - 10.8 /CUMM) 8.8 RBC (4.70 - 6.10 /CUMM) 4.13 L Hgb (14.0 - 18.0 G/DL) 12.0 L Hct (42 - 52 %) 35.0 L MCV (80.0 - 94.0 FL) 84.6 MCH (27.0 - 31.0 PG) 29.0 MCHC (33.0 - 37.0 G/DL) 34.2 RDW (11.5 - 14.5 %) 14.1 Plt Count (130 - 400 /CUMM) 334 MPV (7.4 - 10.4 FL) 7.2 L Gran % (42.2 - 75.2 %) 77.5 H Lymphocytes % (20.5 - 51.1 %) 15.0 L Monocytes % (1.7 - 9.3 %) 5.3 Eosinophils % (0 - 5 %) 1.7 Basophils % (0.0 - 2.0 %) 0.5 Absolute Granulocytes (1.4 - 6.5 /CUMM) 6.8 H Absolute Lymphocytes (1.2 - 3.4 /CUMM) 1.3 Absolute Monocytes (0.10 - 0.60 /CUMM) 0.5 Absolute Eosinophils (0.0 - 0.7 /CUMM) 0.1 Absolute Basophils (0.0 - 0.2 /CUMM) 0
== END 2017-11-30 10:54 ==
LOC: ERH 12:37 → ERHI 17:18 → 2NA 17:18 → EDBEDREQ 18:27 → ENRESERV 19:02 → 2NA 19:12 → ENPENDDIS 11-30 09:31 → 2NA 11-30 10:54
PROVIDERS: Emergency Medicine; Internal Medicine Adolescent Medicine; Student in an Organized Health Care Education/Training Program
DX: K57.91 Diverticulosis of intestine, part unspecified, without perforation or abscess with bleeding (principal); D62 Acute posthemorrhagic anemia; Z79.82 Long term (current) use of aspirin; J45.909 Unspecified asthma, uncomplicated; M19.90 Unspecified osteoarthritis, unspecified site; E78.5 Hyperlipidemia, unspecified; N40.0 Benign prostatic hyperplasia without lower urinary tract symptoms; Z87.442 Personal history of urinary calculi
CPT/HCPCS: 36415; 36592; 88305; 93005; 93010; 96374; G0378; J3490